=== PATIENT | male | born 2000 | race African-American/Black ===

== ENCOUNTER 2023-04-18 22:22 | Emergency (ER) | payer MEDICAID, BC ==
[~2023-04-18] VITALS: Ht 190.5 cm; Wt 100.0 kg
[2023-04-19 00:40] VITALS: BP 129/69; PULSE 74; RESP 15; TEMP 97.3
[2023-04-21 06:07] LABS: HERPES SIMPLEX VIRUS-1 BY PCR Negative (Negative); HERPES SIMPLEX VIRUS-2 BY PCR Negative (Negative)
== END 2023-04-19 01:04 | disposition home or self-care (01) ==
LOC: EMS 22:24
DX: L30.9 Dermatitis, unspecified (principal)
CPT/HCPCS: 87491; 87529; 87591; 99283; 99285